=== PATIENT | male | born 1980 | race Caucasian/White ===

== ENCOUNTER → 2016-07-15 | Day surgery (SDC) | payer OTHER ==
[~2016-07-15] MED LIST: BUPIVACAINE HCL PF 0.75% 30 ML VIAL ONE; EPINEPHrine HCL (1:1000) 30 MG/30 ML VIAL ONE; LACTATED RINGER'S 1000 ML INJ 1,000 ML ONE; LIDOCAINE 1.5%/EPINEPHrine 1:200,000 PF SOLN 30 ML AMP ONE; MIDAZOLAM HCL 5 MG/ML VIAL (1 ML) ONE; ONDANSETRON HCL 4 MG/2 ML VIAL IV PUSH ONE; PROPOFOL 200 MG/20 ML AMP IV ONE; ceFAZolin 2 GM PREMIX 50 ML ONE; oxyCODONE/ACETAMINOPHEN 5 MG/325 MG TAB ONE
--- NOTE | 2016-07-15 13:57 | MP ---
cc: DIVINE KRUEGER M.D. 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 OPERATION: Right shoulder arthroscopic Bankart repair. Right shoulder arthroscopic superior labral repair. Right shoulder arthroscopic debridement, posterior labral tear. ANESTHETIC: Interscalene block and general. SURGEON: Divine Krueger MD. DOPE WEIGH OPERATOR SURGEON: Enrike Chapin MD. ESTIMATED BLOOD LOSS: Minimum. DRAINS: None. SPECIMEN: None. COMPLICATIONS None known. 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 He now presents for arthroscopic surgery, the risks, benefits were thoroughly discussed and a detailed informed consent was obtained. PROCEDURE The sales assistant Enrike Chapin is an advanced registered nurse practitioner his skill set was medically necessary for the performance of the operation. He assisted by manipulation of the arm and help with holding the camera in the complex instrumentation and was medically necessary to facilitate the repair. PROCEDURE The patient is given interscalene block in the preop holding area and brought to the operating room, placed under general anesthetic, was placed in lateral decubitus position right shoulder up. The right shoulder was draped and prepped in usual sterile fashion. IV antibiotics were given. Time-out was completed. We used three portal technique, a portal in the soft spot posteriorly and then two portals in the rotator interval with cannulas anteriorly we used 30 degrees scope and 90 degrees scope the articular surfaces did show slight amount of wear consistent with the multiple dislocations posteriorly. The posterior labral tear was relatively small and there was unstable fibers were required fraying was not grossly unstable to require a stabilization. The superior labral tear lifted off of the root of the superior labrum and biceps tendon and was indicated for repair and we proceeded with placement of bio-suture tack anchors times two, one just posterior to the biceps tendon and one anterior to it and proceed to tie this down. We then switched to a 70 degrees scope, and visualized the Bankart lesion and used the different elevators to elevate the soft tissue further. We did photograph it, before we did this but elevated further and then debrided and then debrided the bone so that we had good healing potential along the neck and then proceeded with placement of four suture anchors, one at the 5 o'clock position, one at the 4 o'clock position, one at the 3 o'clock position and one at the 01:30 position on the face of the clock. We placed the most inferior one first and passed the suture shuttle and then tied this anchor down and then the next anchor and proceeded with total four anchors anteriorly. Repeat photograph demonstrates excellent reconstruction of the junction between the anterior glenoid and the anterior labrum with a bumper effect. We irrigated out copious amounts irrigation, took our final photographs the arthroscopic equipment was removed. We closed with absorbable sutures. Steri-Strips applied. Sterile dressing applied. The patient was awoken return recovery room in stable condition. MD TL Parks/ted /9:09 AM /1:23 PM
== END | disposition home or self-care (01) ==
LOC: ESDC 06:09
PROVIDERS: ATTEND Orthopaedic Surgery Sports Medicine
DX: M24.411 Recurrent dislocation, right shoulder (principal); S43.431A Superior glenoid labrum lesion of right shoulder, initial encounter
CPT/HCPCS: 01630; 01991; 29806; 29807; 64417; C1713; J0171; J0690; J2250; J2405; J7120